=== PATIENT | male | born 1935 | race Caucasian/White ===

== ENCOUNTER 2018-08-27 16:46 | Inpatient (IN) ==
--- NOTE | 2018-08-27 18:40 | Diag Imaging Result Doc PS360 ---
CHEST-2 VIEWS - 08/27/2018 INDICATION: edema COMPARISON: 06/02/2018 FINDINGS: The lungs are normally expanded and clear. Heart size and mediastinal contours are normal. No pneumothorax or pleural effusion. IMPRESSION: Negative exam. Electronically signed by Palomo Romo 08/27/2018 6:38 PM
--- NOTE | 2018-08-27 20:06 | PROVIDER DOCUMENTATION ---
This chart was entered by Natividad Alves Scribe, acting as scribe for You Hernandez MD. HPI-General Adult - General Chief Complaint: Edema Stated Complaint: BLISTERS ON LEG/LEAKING Time Seen by Provider: 08/27/18 19:30 Source: patient Allergies/Adverse Reactions: Patient Allergies Allergy/AdvReac Type Severity Reaction Status Date / Time No Known Allergies Allergy Verified 05/28/18 08:59 Home Medications: Home Medication List Medication Instructions Recorded Confirmed Last Taken Type Finasteride [Proscar] 5 mg PO QAM 05/17/18 05/28/18 05/27/18 History Hydralazine [Apresoline] 25 mg PO BID 05/17/18 05/28/18 05/27/18 History ATORVAstatin [Lipitor] 40 mg PO QHS #90 tab 05/22/18 05/28/18 05/27/18 Rx Hydrocodone/APAP 10 mg/325 mg 1 ea PO Q6H PRN PRN #10 tab 05/22/18 05/28/18 05/27/18 Rx [Regina-10] Metoprolol Succinate E.r. [Toprol 25 mg PO DAILY #120 tab 05/22/18 05/28/18 05/27/18 Rx Xl] Amoxicillin/Potassium Clav 1 ea PO BID #14 tab 06/03/18 Unknown Rx [Augmentin 500-125 Tablet] Folic Acid 1 mg PO DAILY #30 tab 06/03/18 Unknown Rx Furosemide [Lasix] 1 cap PO DAILY #30 tab 06/03/18 05/28/18 05/27/18 Rx Polyethylene Glycol 3350 [Miralax] 17 gm PO DAILY #30 powder, packet 06/03/18 Unknown Rx Sennosides/Docusate Sodium 2 ea PO BID PRN #60 tab 06/03/18 Unknown Rx [Pericolace] Tamsulosin [Flomax] 0.4 mg PO QHS #30 cap 06/03/18 Unknown Rx - History of Present Illness -Gen Adult Nature of Presenting Problems: 82 yom presents to ed w/co swelling in legs, red, infected, and weeping. pt states painful to touch. pt states this has been getting progressively worse the past 3 weeks. pt followed by Dr. Tapia. pt states Dr. Tapia told him to come to ed if swelling becomes worse. pt has hx of dm and chf. pt denies fever, cp, sob. pt is seen by home health. Location of Pain/Injury: reports: lower extremity (bilat legs blistered, weeping) Review of Systems - Adult - REVIEW OF SYSTEMS - ADULT Constitutional: reports: no symptoms reported. denies: chills, fever, fatique Eyes: reports: no symptoms reported Ears, Nose, Mouth & Throat: reports: no symptoms reported Cardiovascular: reports: no symptoms reported Respiratory: reports: no symptoms reported Gastrointestinal: reports: no symptoms reported Genitourinary: reports: no symptoms reported Musculoskeletal: reports: see HPI, joint swelling (bilat lower legs.), other (erythema, blistering and weeping.). denies: frequent leg cramps, joint pain, muscle weakness Integumentary: reports: no symptoms reported Neurological: reports: no symptoms reported Psychiatric: reports: no symptoms reported Endocrine: reports: no symptoms reported Hematologic/Lymphatic: reports: no symptoms reported Allergic/Immunologic: reports: no symptoms reported All Other Systems: Reviewed and Negative Past History - Adult - PAST MEDICAL HISTORY-ADULT Review of Records: reports: Old Records Reviewed, Nursing Assessment Review, Medications Reviewed, Social history reviewed & non-contributory. Major Childhood Illnesses: reports: denies history Cardiovascular: reports: CHF, HTN, hyperlipidemia Respiratory: reports: sleep apnea Gastrointestinal: reports: GERD Obstetrical/Gynecological: reports: denies history Genitourinary: reports: denies history Musculoskeletal: reports: denies history Neurological: reports: denies history Endocrine/Immune: reports: Diabetes, thyroid disorder Other Conditions: reports: other cancer (skin cancer) - PRIOR SURGERIES/PROCEDURES Surgical/Procedure History: reports: orthopedic (extremity) (total knee rep) - IMMUNIZATION STATUS Childhood Immunizations: See Nurse Assessment Flu Vaccine: See Nurse Assessment - FAMILY HISTORY Family History: reviewed, not pertinent - SOCIAL HISTORY Smoking: non-smoker Substance Use: none/never Physical Exam-General - PHYSICAL EXAM-ADULT Initial Vital Signs Reviewed: Yes - CONSTITUTIONAL General Appearance: alert, mild distress, obese. negative: slow to respond, obtunded, combative - EYES Eyes: PERRL/EOMI - HEAD, EARS, NOSE, MOUTH & THROAT HENMT: normocephalic/atraumatic, moist mucous membranes, normal ENT inspection - NECK Neck: non-tender, full range of motion, supple, normal inspection - RESPIRATORY Respiratory: chest non-tender, lungs clear, normal breath sounds - CARDIOVASCULAR Cardiovascular: normal peripheral pulses, regular rate, rhythm - GASTROINTESTINAL (ABDOMEN) Abdominal Exam: normal bowel sounds, non tender, soft - LYMPHATIC Lymphatic: no adenopathy - MUSCULOSKELETAL Back Exam: normal inspection, no CVA tenderness, no vertebral tenderness Extremity: erythema, inflammation, pedal edema, swelling, tenderness, other (visible weeping blisters bilat lower extremities). 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 nml as tested, grossly normal, no motor/sensory deficits - PSYCHIATRIC Psych/Mental Status: normal mood/affect, normal thought content, normal thought process, oriented x 3 Progress - PLAN OF CARE/RESULTS Progress/Plan/Lab Results: Vital Signs - 8 hr 08/27/18 17:19 Temperature 98.2 F Pulse Rate 67 Respiratory Rate 22 Blood Pressure 203/85 O2 Sat by Pulse Oximetry 95 Orders Category Date Time Status Cardiac Monitoring DIRECTED Care 08/27/18 17:24 Active Oxygen Therapy- ED Nursing DIRECTED Care 08/27/18 17:24 Active Saline Loc NOW Care 08/27/18 17:24 Active CHEST-2 VIEWS [RAD] Stat Exams 08/27/18 17:24 Completed BLOOD CULTURE [BLDCUL] Stat Lab 08/27/18 19:31 Uncollected CBC WITH ELECTRONIC DIFF [HEME] Stat Lab 08/27/18 17:24 Uncollected CK PROFILE [SP CHEM] Stat Lab 08/27/18 17:24 Uncollected COMPREHENSIVE METABOLIC PANEL [CHEM] Stat Lab 08/27/18 17:24 Uncollected PRO B-NATRIURETIC PEPTIDE Stat Lab 08/27/18 17:24 Uncollected PROTIME WITH INR [COAG] Stat Lab 08/27/18 17:24 Uncollected PTT [COAG] Stat Lab 08/27/18 17:24 Uncollected TROPONIN T Stat Lab 08/27/18 17:24 Uncollected CP/SOB/Palp >45 yrs of Age Stat Oth 08/27/18 17:24 Ordered EKG [EKG] Stat Ther 08/27/18 17:24 Ordered Result Diagrams: 08/27/18 22:02 - CONSULTS/PCP/HOSPITALIST Notification #1 *Consult/PCP/Hospitalist*: Dr. Espinal,hospitalist Time Discussed: 22:20 Consult Disposition: Admit Departure - Departure Date of Disposition Decision: 08/27/18 Time of Disposition Decision: 22:57 DIAGNOSIS: Cellulitis Qualifiers: Site of cellulitis: extremity Site of cellulitis of extremity: lower extremity Laterality: unspecified laterality Qualified Code(s): L03.119 - Cellulitis of unspecified part of limb Disposition: ADMITTED INPATIENT 09 Certified Medical Emergency: Emergent Condition: Stable Referrals and Follow-Ups: Calin Tapia MD [ACTIVE STAFF PHYSICIAN] - - Critical Care Note This patient required my direct & personal management of CC.: No Attestation - Physician/ NEERU Attestation Patient care was provided by Advanced Practice Provider:: No The physician spent face to face time with patient:: Yes Advanced Practice Provider documentation review:: Supervising physician onsite and consulted in the evaluation and care of this patient. The physician did have a face to face encounter with the patient. This chart was documented by the indicated scribe, (Natividad Alves Scribe) and accurately reflects the services I performed and decisions made by me, You Hernandez MD, as attested by the provider's signature.
[2018-08-27] MEDS ORDERED: NORCO-5 PO ONE (22:08)
[2018-08-27 22:25] LABS: BASO# 0.02 X1000 (0.0-0.2); BASO% 0.2 % (0.0-0.8); EOS# 0.14 X1000 (0.0-0.7); EOS% 1.2 % (0.0-10.0); HEMATOCRIT 39.4 % (42.0-52.0); HEMOGLOBIN 12.1 g/dL (14.0-18.0); IMM GRAN# 0.02 X1000 (0.0-0.04); IMM GRAN% 0.2 % (0.0-0.5); LYMPH# 1.35 X1000 (1.2-3.4); LYMPH% 11.5 % (20.5-51.1); MCHC 30.7 g/dL (33-37); MCV 97.8 FL (81-99); MONO# 0.98 X1000 (0.11-0.59); MONO% 8.4 % (1.7-9.3); MPV 9.9 FL (7.4-10.4); NEUT# 9.18 X1000 (1.4-6.5); NEUT% 78.5 % (42.2-75.2); PLT 231 X1000 (130-400); RBC 4.03 XMIL (4.7-6.1); RDW 14.2 % (11.5-14.5); WBC 11.69 X1000 (4.8-10.8)
[2018-08-27 22:33] LABS: INR 1.09
[2018-08-27 22:34] LABS: PTT 32.1 Seconds (22.3-41.8)
[2018-08-27] MEDS: ZOSYN 3.375 GM in NS 50 ML IV ONE ×2 (22:53→23:45)
[2018-08-27] MEDS ORDERED: VANCOMYCIN 1 GM/NS 1 GM/250 ML IVPB IV ONE (22:53)
[2018-08-27 23:02] LABS: ALB/GLOB RATIO 0.5; ALBUMIN 2.6 g/dL (3.5-5.0); CALCIUM 8.6 mg/dL (8.8-10.2); CREATININE 1.5 mg/dL (0.7-1.2); POTASSIUM 5.3 mmol/L (3.5-5.1); TOTAL BILIRUBIN 0.57 mg/dL (0.20-1.00); TOTAL PROTEIN 7.4 g/dL (6.3-8.3)
[2018-08-28] MEDS ORDERED: LASIX IV ONE (01:05)
[2018-08-28] MEDS ORDERED: APRESOLINE IV PRN (05:25)
[2018-08-28] MEDS ORDERED: CUBICIN 500 MG in NS 100 ML IV SCH (05:25)
[2018-08-28] MEDS ORDERED: HEPARIN SUBQ SCH (05:25)
[2018-08-28] MEDS: HUMULIN R SUBQ SCH ×4 (06:09→23:49)
[2018-08-28 06:42] LABS: BASO# 0.02 X1000 (0.0-0.2); BASO% 0.2 % (0.0-0.8); EOS% 1.6 % (0.0-10.0); HEMATOCRIT 38.5 % (42.0-52.0); HEMOGLOBIN 12.1 g/dL (14.0-18.0); IMM GRAN# 0.02 X1000 (0.0-0.04); IMM GRAN% 0.2 % (0.0-0.5); LYMPH# 1.69 X1000 (1.2-3.4); LYMPH% 13.6 % (20.5-51.1); MCHC 31.4 g/dL (33-37); MCV 95.5 FL (81-99); MONO# 1.21 X1000 (0.11-0.59); MONO% 9.8 % (1.7-9.3); MPV 9.6 FL (7.4-10.4); NEUT# 9.27 X1000 (1.4-6.5); NEUT% 74.6 % (42.2-75.2); PLT 275 X1000 (130-400); RBC 4.03 XMIL (4.7-6.1); WBC 12.41 X1000 (4.8-10.8)
[2018-08-28 07:02] LABS: HEMOGLOBIN A1C 6.1 % (4.8-6.0)
[2018-08-28 08:08] LABS: CALCIUM 8.9 mg/dL (8.8-10.2); CREATININE 1.4 mg/dL (0.7-1.2); POTASSIUM 4.9 mmol/L (3.5-5.1)
[2018-08-28] MEDS ORDERED: CALMOSEPTINE OINTMENT TOP PRN (08:15)
[2018-08-28] MEDS: PRILOSEC PO SCH (08:35)
[2018-08-28] MEDS: FLOMAX PO SCH (08:35)
[2018-08-28] MEDS: ZOSYN 2.25 GM in NS 50 ML IV SCH ×3 (12:37→20:47)
[2018-08-28] MEDS: LASIX IV SCH (12:37)
[2018-08-28] MEDS: NORCO-5 PO PRN ×2 (12:38→21:07)
--- NOTE | 2018-08-28 18:05 | CONSULTATION ---
DATE OF CONSULTATION: 08/28/2018 HISTORY OF PRESENT ILLNESS: A gentleman with multiple medical issues including diabetes, congestive heart failure, chronic edema, who is admitted with erythema of the legs and swelling with crusting ulcerations. For management of this, he has been started on antibiotics. He says it has been going on for better part of a week. MEDICAL HISTORY: Morbid obesity, diabetes, congestive heart failure, osteoarthritis, chronic kidney disease with hydronephrosis, history of pneumonia. SURGICAL HISTORY: He has had knee replacements bilaterally, but no vascular procedures. He has had urologic procedure as well. SOCIAL HISTORY: No current tobacco, alcohol or drugs. 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 FAMILY HISTORY: Reviewed, noncontributory. REVIEW OF SYSTEMS: Ten point negative. PHYSICAL EXAMINATION: Vital Signs: Temperature 99.8, pulse 83, blood pressure 157/56. He is 343 pounds, 5 feet 11 inches. General: He is alert, in no acute distress. Eyes: No scleral icterus. Cardiovascular: Normal rate. Pulmonary: No increased work of breathing. Abdomen: Obese with large panniculus. Integument: Warm and dry. Peripheral vascular: He has palpable pedal pulses, but he has chronic thickening of the skin with erythema and superficial ulcerations and crusting bilaterally. No necrosis. No purulence. Psychiatric: Appropriate affect. Neurologic: Generalized weakness related to his size. LABS: White count 12, hematocrit 38. Creatinine is 1.5, glucose 150, A1c 6.1. LFTs are normal. ASSESSMENT AND PLAN: This is an 82-year-old gentleman with: 1. Congestive heart failure. 2. Bilateral lower extremity edema. 3. Apparent superimposed cellulitis. We will start Unna wraps bilaterally. He is on appropriate antibiotics. We will continue to follow his wounds closed. I do not see any need for surgical debridement at this time, but we will monitor him closely. cc: Jayy Bruno MD [facility]
[2018-08-28] MEDS: HEPARIN SUBQ SCH (20:47)
[2018-08-29] MEDS: LASIX IV SCH ×2 (00:19→12:11)
[2018-08-29] MEDS: ZOSYN 2.25 GM in NS 50 ML IV SCH ×2 (00:19→05:27)
[2018-08-29] MEDS: NORCO-5 PO PRN ×3 (03:37→20:04)
[2018-08-29] MEDS: HEPARIN SUBQ SCH ×3 (05:27→20:06)
[2018-08-29] MEDS: PRILOSEC PO SCH ×2 (05:28→06:45)
[2018-08-29] MEDS: HUMULIN R SUBQ SCH ×3 (06:43→16:42)
[2018-08-29 06:51] LABS: BASO# 0.02 X1000 (0.0-0.2); BASO% 0.2 % (0.0-0.8); EOS# 0.36 X1000 (0.0-0.7); EOS% 3.8 % (0.0-10.0); HEMATOCRIT 38.3 % (42.0-52.0); HEMOGLOBIN 12.1 g/dL (14.0-18.0); IMM GRAN# 0.02 X1000 (0.0-0.04); IMM GRAN% 0.2 % (0.0-0.5); LYMPH# 1.47 X1000 (1.2-3.4); LYMPH% 15.4 % (20.5-51.1); MCH 30.5 PG (27-31); MCHC 31.6 g/dL (33-37); MCV 96.5 FL (81-99); MONO# 0.95 X1000 (0.11-0.59); MONO% 9.9 % (1.7-9.3); MPV 9.7 FL (7.4-10.4); NEUT# 6.75 X1000 (1.4-6.5); NEUT% 70.5 % (42.2-75.2); PLT 264 X1000 (130-400); RBC 3.97 XMIL (4.7-6.1); RDW 13.9 % (11.5-14.5); WBC 9.57 X1000 (4.8-10.8)
[2018-08-29 07:23] LABS: CALCIUM 8.3 mg/dL (8.8-10.2); CREATININE 1.5 mg/dL (0.7-1.2); POTASSIUM 4.4 mmol/L (3.5-5.1)
[2018-08-29] MEDS: FLOMAX PO SCH (08:54)
[2018-08-29] MEDS: MIRALAX PO SCH ×2 (09:13→20:06)
--- NOTE | 2018-08-29 09:46 | PROGRESS NOTE ---
DATE: 08/29/2018 SUBJECTIVE: The patient states he is feeling better. He is still complaining of bilateral lower extremity pain/discomfort. As per the patient, he has been having constipation. I will add MiraLAX to his medications. For now we will continue with the same management. WBC today is normal. Negative blood culture so far. OBJECTIVE: Vital Signs: Temperature 97.6 degrees, pulse 65, respiratory rate 24, blood pressure 158/62, oxygen saturation 98 on room air. HEENT: Head normocephalic. No trauma. PERRLA. Neck: Supple. Some JVD. Central trachea. Chest: Decreased breath sounds mostly at the bases. Some crepitus at the bases as well. Abdomen: Soft, obese. Positive bowel sounds. Extremities: Covered with a Unna wraps bilaterally. Some erythema on his toes though. 2 to 3+ lower extremity edema. No clubbing. No cyanosis. Neurological: The patient is alert and oriented x3. No focal deficits. LABORATORY: WBC 9.5, hemoglobin 12.1, hematocrit 38.3, platelets 264,000. Sodium 140, potassium 4.4, chloride 102, bicarbonate 27, BUN 47, creatinine 1.5, glucose 167, calcium 8.7. ASSESSMENT AND PLAN: 1. Bilateral lower extremity edema with cellulitis and superficial ulcerations. We will continue with the antibiotics. Surgery Department evaluated this patient and they recommended to use Unna wraps bilaterally. We will continue with antibiotics and monitoring this patient closely. Infectious Disease Department has been consulted. 2. Fluid overload. This patient had an echocardiogram done on 05/19/2018. His ejection fraction is around 55%, but his systolic pulmonary artery pressure by Doppler is around 60 to 65 mmHg with moderate pulmonary hypertension. Probably this patient has some diastolic issues. We will continue with IV Lasix for now. At home he also is using Lasix daily. 3. History of benign prostatic hypertrophy, aware. We will monitor. 4. Morbid obesity with a body mass index of around 47.9. 5. Hyperlipidemia. 6. Hypothyroidism. 7. Chronic bilateral lower extremity venous insufficiency. 8. Chronic kidney disease stage 3. We will continue to monitor. This patient is getting Lasix. Kidney function has been stable. 9. Constipation, I just added MiraLAX to his medications. cc: Tam Gould MD
--- NOTE | 2018-08-29 10:48 | GENERAL SURGERY PROGRESS NOTE ---
DATE: 08/29/2018 SUBJECTIVE: He is doing okay. Unna wraps are in place. No fevers recorded overnight. OBJECTIVE: Vital Signs: Pulse 65, blood pressure 158/62, oxygen saturation is 98%. General: He is alert, resting comfortably. Bilateral Unna wraps are in place. Toes are well perfused. Laboratory Data: White count is 9, hematocrit is 38. Creatinine is 1.5, glucose 160s to 170s. ASSESSMENT AND PLAN: This is an 82-year-old gentleman with venous hypertension and inflammation with superficial ulcerations and cellulitis. Continue antibiotics and Unna wrap compressive therapy. He will need Unna wraps going forward at home. We will continue to follow along. cc: Jayy Bruno MD
--- NOTE | 2018-08-29 11:02 | INFECTIOUS DISEASE CONSULT REP ---
DATE: 08/29/2018 CONCLUSION: The patient was admitted to the hospital with leg cellulitis. RECOMMENDATIONS: I have discontinued daptomycin and Zosyn and instead have put the patient on Cefepime. I have requested to be paged the next time the patient's leg dressings are changed. Also, I have ordered a culture of both legs with the next dressing change also. And finally I ordered pictures to be taken of the legs. DISCUSSION: The patient tells me about for the past correction patient says for a long time he has had swelling in his legs and in the past 2 to 3 weeks. His leg became edematous, erythematous and had what sounds like bullae on his legs as well. Laboratory studies show a CBC with a white count of 9570, hemoglobin 12.1, and platelet count 264,000. Creatinine is 1.5. GFR is 45. Liver function studies are normal. Blood cultures are pending. PAST MEDICAL HISTORY/REVIEW OF SYSTEMS: Eyes and ears: The patient denies trouble hearing or seeing, but when I was examining him, I did have to often repeat what I asked him. The patient can see near objects. He does not have any white coating on his tongue. There is no drainage from his nose or the ears. As mentioned above, he appeared to have difficulty hearing even though he told me he did not. Neck: No stiffness. Respiratory: No cough or shortness of breath. Cardiac: No chest pain or palpitations. GI: No nausea, vomiting or and no nausea, vomiting, or diarrhea. While being hospitalized, the patient did not pass a bowel movement. Bones, joints, muscles: Patient complains of bilateral knee pain. Endocrine: Patient is diabetic. He does not have any thyroid problems. Integument: No rash noted. PREVIOUS HOSPITALIZATIONS AND OPERATIONS: Patient had a traumatic difficult time trying to get a South catheter in place. Eventually, Dr. Larson put [address] The early attempts to put in a South were from the nurses. Patient also has had bilateral total knee arthroplasties and removal of a skin cancer. MEDICAL DISEASES: Positive for morbid obesity,diabetes mellitus, hypertension, skin cancer, congestive heart failure, osteoarthritis, and chronic kidney disease with hydronephrosis. INFECTIOUS DISEASE HISTORY: Positive for leg cellulitis and pneumonia. FAMILY HISTORY: Positive for myocardial infarction. SOCIAL HISTORY: [place] He is . He has a dog as a PET. The patient does not smoke cigarettes, drink alcoholic beverages or abuse drugs. ALLERGIES: His chart lists no known drug allergies. MEDICATIONS AT HOME: Alprazolam, Lipitor, Lotensin, Proscar, Lasix, Apresoline, hydrocodone, insulin, Teresa-Colace and Flomax. PHYSICAL EXAMINATION: Vital Signs: Temperature is 97.6 degrees, pulse 65, respirations 24, blood pressure 158/62. The patient weighs 343 pounds This is a chronically ill- appearing elderly male he is in no acute distress. Head/eyes/ears/nose/throat: He can see near objects. As mentioned before he has decrease in his hearing. He does not have any white patches in his mouth. He is edentulous. Neck: No meningismus. Cardiac: Heart rate is regular. Lungs: There were diminished breath sounds in the bases. I did not hear any rales. Abdomen: Soft and nontender. Extremities: Both legs had large Unna wraps over them. Neurologic: The patient is awake. He can move his extremities, but he is weak. There is no tremor. Integument: No rash noted. Thank you for the consult. cc: Richie Vela MD MTDD
[2018-08-29] MEDS: MAXIPIME 2 GM in NS 100 ML IV SCH ×2 (11:16→22:37)
[2018-08-29] MEDS ORDERED: APRESOLINE PO SCH (21:00)
[2018-08-30] MEDS: HUMULIN R SUBQ SCH ×4 (01:05→16:28)
[2018-08-30] MEDS: NORCO-5 PO PRN (01:31)
[2018-08-30] MEDS: LASIX IV SCH ×2 (01:31→13:40)
[2018-08-30] MEDS: HEPARIN SUBQ SCH ×3 (05:42→22:50)
[2018-08-30] MEDS: PRILOSEC PO SCH ×2 (05:42→06:15)
[2018-08-30 07:22] LABS: BASO# 0.02 X1000 (0.0-0.2); BASO% 0.2 % (0.0-0.8); EOS# 0.44 X1000 (0.0-0.7); EOS% 5.1 % (0.0-10.0); HEMATOCRIT 40.1 % (42.0-52.0); HEMOGLOBIN 12.5 g/dL (14.0-18.0); IMM GRAN# 0.02 X1000 (0.0-0.04); IMM GRAN% 0.2 % (0.0-0.5); LYMPH# 1.66 X1000 (1.2-3.4); LYMPH% 19.2 % (20.5-51.1); MCH 30.1 PG (27-31); MCHC 31.2 g/dL (33-37); MCV 96.6 FL (81-99); MONO% 10.4 % (1.7-9.3); MPV 9.9 FL (7.4-10.4); NEUT# 5.62 X1000 (1.4-6.5); NEUT% 64.9 % (42.2-75.2); PLT 283 X1000 (130-400); RBC 4.15 XMIL (4.7-6.1); RDW 13.7 % (11.5-14.5); WBC 8.66 X1000 (4.8-10.8)
[2018-08-30 07:51] LABS: CALCIUM 8.7 mg/dL (8.8-10.2); CREATININE 1.6 mg/dL (0.7-1.2); POTASSIUM 4.6 mmol/L (3.5-5.1)
[2018-08-30] MEDS ORDERED: DULCOLAX PR ONE (08:18)
[2018-08-30] MEDS ORDERED: XANAX PO PRN (08:22)
--- NOTE | 2018-08-30 08:49 | PROGRESS NOTE ---
DATE: 08/30/2018 SUBJECTIVE: This patient is lying comfortably in bed. He has generalized weakness. I will ask for physical therapy evaluation. It looks like he is still constipated. I have placed this patient on MiraLAX twice a day, and I will use a Dulcolax suppository today to see if that helps. As per the patient, he has not been walking too much at home because of weakness. I have requested an evaluation by OT and PT today. His blood pressure has been elevated. I have placed this patient on amlodipine 5 a day, and I increased his dose of hydralazine to 25 b.i.d. to 25 t.i.d. Let's see how he does. OBJECTIVE: Temperature 97.5 degrees, pulse 70, respiratory rate 20, blood pressure 179/79, and oxygen saturation 96 on room air.HEENT: Head normocephalic. No trauma. PERRLA. Neck: Supple. No JVD. No masses. Central trachea. Chest: Decreased breath sounds mostly at the bases with some crepitus at the bases as well. Abdomen: Soft, obese, and protuberant. Positive bowel sounds. Extremity: They are covered with an Unna wraps bilaterally. He has some erythema on his toes with some ulcers. They look good. 2 to 3+ lower extremity edema. No clubbing. No cyanosis. Neurological: The patient is alert and oriented x3. No focal deficits. LABORATORY: WBC 8.6, hemoglobin 12.5, hematocrit 96.6, and platelets 283,000. Sodium 145, potassium 4.6, chloride 103, bicarbonate 32, BUN 46, creatinine 1.6, glucose 159, and calcium 8.7. ASSESSMENT AND PLAN: 1. Bilateral lower extremity edema with cellulitis and superficial ulcerations. We will continue with antibiotics. Surgery Department has evaluated this patient and they recommended to use Unna wraps bilaterally. The Infectious Disease Department has evaluated this patient. They have modified the antibiotics. We will follow their recommendations. 2. Fluid overload. This patient had an echocardiogram on 05/19/2018. His ejection fraction is around 55, but his systolic pulmonary artery pressure by Doppler is around 60 to 65 mmHg with moderate pulmonary hypertension so probably this patient has diastolic issues. We will continue with Lasix for now. BUN and creatinine are around baseline. We will monitor. 3. History of BPH aware. We will monitor. 4. Morbid obesity with a body mass index of 47.9. Aware. Diet and exercise has been discussed. 5. Hyperlipidemia. Continue with same management. 6. Hypothyroidism. I would ask for a TSH level. I do not see any medication listed for his hypothyroidism. I asked the patient, and he does not remember taking that pill. We will probably call his pharmacy or primary doctor to find out. 7. Chronic bilateral lower extremity venous insufficiency. Aware. Continue with same management. 8. CKD stage 3. We will continue to monitor. This patient is getting Lasix. Kidney function has been stable. This is his baseline. 9. Constipation. Continue with MiraLAX twice a day. I will try a Dulcolax suppository today x1. cc: Tam Gould MD
[2018-08-30] MEDS: MIRALAX PO SCH ×2 (11:43→22:52)
[2018-08-30] MEDS: APRESOLINE PO SCH ×3 (11:44→18:22)
[2018-08-30] MEDS: MAXIPIME 2 GM in NS 100 ML IV SCH ×2 (11:45→22:53)
[2018-08-30] MEDS: NORVASC PO SCH (11:52)
[2018-08-30] MEDS: PROSCAR PO SCH (11:52)
[2018-08-30] MEDS: FOLIC ACID PO SCH (11:52)
[2018-08-30] MEDS: NORCO-10 PO PRN ×2 (12:15→18:22)
--- NOTE | 2018-08-30 13:33 | GENERAL SURGERY PROGRESS NOTE ---
DATE: 08/30/2018 SUBJECTIVE: Doing well. Legs feel better. He is in a chair. OBJECTIVE: His white count is normal at 8, hematocrit is 40. Creatinine is 1.6, glucose 150s and 140s. No fevers. No tachycardia. Blood pressure 179/79. Bilateral Unna boots. The right one has some drainage on it but the cellulitis extending above these is better. ASSESSMENT/PLAN: An 82-year-old gentleman with venous hypertension and chronic edema, cellulitis, and superficial ulcerations. We will continue his Unna wrap therapy. Follow along. He will need ongoing compressive therapy indefinitely. cc: Jayy Bruno MD
--- NOTE | 2018-08-30 15:48 | INFECTIOUS DISEASE PROGRESS NO ---
DATE: 08/30/2018 PRESENT ILLNESS: Patient has bilateral leg cellulitis to which he is predisposed because of his massive obesity, and he has chronic edema of the legs, which has become infected. MEDICATIONS: The patient is on cefepime IV as a single agent. PHYSICAL EXAMINATION: Vital Signs: Temperature is 97.4 degrees, pulse 71, respirations 12, blood pressure 162/71. General: This is a morbidly obese, elderly male. He is in no acute distress. Head, Eyes, Ears, Nose, and Throat: He can hear my spoken words and see near objects. He does not have any white coating to his tongue. Neck: No stiffness. Lungs: Clear to auscultation. Cardiovascular: Regular heart rate. Abdomen: Soft and nontender. Extremities: The Unna wraps were removed from both the patient's legs. Both legs from the knee to the foot have a purplish discoloration and areas where there has been loss of superficial skin, and there are superficial erythematous wounds visible. Neurologic: The patient is awake. He can move his extremities. There is no tremor. LABORATORY AND X-RAY STUDIES: The creatinine is 1.6. GFR is 41. Blood cultures are negative. CBC shows a white count of 8660, hemoglobin 12.5, and platelet count 283,000. I obtained cultures from both the legs of the patient, and these have been sent to microbiology laboratory. ASSESSMENT AND PLAN: The patient has bilateral leg edema and cellulitis. The plan is to have the patient elevate his legs as much as possible. I am going to continue cefepime pending the results of the culture I took from both the patient's legs today. COMORBIDITIES: The patient is morbidly obese, which has caused the patient to have bilateral leg edema. The patient also has diabetes mellitus and congestive heart failure and chronic kidney disease. cc: Richie Vela MD
[2018-08-30] MEDS: FLOMAX PO SCH (22:51)
[2018-08-30] MEDS: LIPITOR PO SCH (22:51)
[2018-08-31] MEDS: NORCO-10 PO PRN ×4 (00:16→19:37)
[2018-08-31] MEDS: HUMULIN R SUBQ SCH ×5 (06:34→22:34)
[2018-08-31] MEDS: PRILOSEC PO SCH (06:42)
[2018-08-31] MEDS: HEPARIN SUBQ SCH ×3 (06:42→22:33)
[2018-08-31 06:45] LABS: BASO# 0.04 X1000 (0.0-0.2); BASO% 0.5 % (0.0-0.8); EOS# 0.43 X1000 (0.0-0.7); EOS% 5.7 % (0.0-10.0); HEMATOCRIT 38.3 % (42.0-52.0); HEMOGLOBIN 12.1 g/dL (14.0-18.0); IMM GRAN# 0.02 X1000 (0.0-0.04); IMM GRAN% 0.3 % (0.0-0.5); LYMPH# 2.03 X1000 (1.2-3.4); LYMPH% 26.9 % (20.5-51.1); MCH 30.5 PG (27-31); MCHC 31.6 g/dL (33-37); MCV 96.5 FL (81-99); MONO% 10.6 % (1.7-9.3); MPV 9.5 FL (7.4-10.4); NEUT# 4.23 X1000 (1.4-6.5); PLT 280 X1000 (130-400); RBC 3.97 XMIL (4.7-6.1); RDW 13.6 % (11.5-14.5); WBC 7.55 X1000 (4.8-10.8)
[2018-08-31 07:25] LABS: CALCIUM 8.2 mg/dL (8.8-10.2); CREATININE 1.2 mg/dL (0.7-1.2); POTASSIUM 4.4 mmol/L (3.5-5.1)
[2018-08-31] MEDS: NORVASC PO SCH (09:34)
[2018-08-31] MEDS: MIRALAX PO SCH ×2 (09:34→22:33)
[2018-08-31] MEDS: LASIX IV SCH (09:34)
[2018-08-31] MEDS: PROSCAR PO SCH (09:34)
[2018-08-31] MEDS: FOLIC ACID PO SCH (09:34)
[2018-08-31] MEDS: APRESOLINE PO SCH ×3 (09:34→22:33)
[2018-08-31] MEDS: MAXIPIME 2 GM in NS 100 ML IV SCH ×2 (09:34→22:32)
--- NOTE | 2018-08-31 10:30 | HISTORY AND PHYSICAL ---
CHIEF COMPLAINT: Increasing swelling and irritation in his bilateral lower extremities. HISTORY OF PRESENT ILLNESS: He is an 82-year-old gentleman with CHF and morbid obesity, who presents with swelling and irritation in his lower extremities. He sees DR. Tapia as an outpatient. He carries a diagnosis of CHF and many other issues but not diabetes. Workup in the ER showed chronic venous stasis with underlying cellulitis and multiple areas of desquamation, I would say some sloughing off of old skin and then weeping of serous fluid. He states his legs have been getting worse for the last week. He has some subjective fevers and chills. Workup in the ER showed the cellulitis for which he was treated. I do not think he has had outpatient antibiotics. I think they encouraged him to go to the ER. He had seen Dr. Tapia, but he did not want to be admitted at [place] because of complications he had with a [place] catheter previously. He was here about 3 months ago for pneumonia and had issues then. He had bilateral hydronephrosis which I think was related possibly to a catheter or maybe a catheter not being placed. In any case, he had been discharged previously on Augmentin. Workup in the ER again showed the lower extremity cellulitis for which he was admitted. PAST MEDICAL HISTORY: 1. Reported CHF. 2. Hypertension. 3. Chronic venous insufficiency. 4. BPH. 5. Urinary retention with bladder hemorrhage, but I think that was related to the significant urinary retention. 6. Morbid obesity. 7. Hypothyroidism. 8. Chronic renal failure stage III. PAST SURGICAL HISTORY: He has had bilateral cataract repair. He has had right knee arthroplasty and total left knee arthroplasty. SOCIAL HISTORY: I think he is in assisted living. No alcohol. No tobacco. FAMILY HISTORY: No cardiac, no cancer, no diabetes. ALLERGIES: No known drug allergies. MEDICATIONS: Medication list is not complete. Hydralazine, Proscar, Flomax, Lipitor, Augmentin, folic acid, Lasix, MiraLAX, [place], sennosides, and metoprolol. PHYSICAL EXAMINATION: VITAL SIGNS: Blood pressure is 203/85, temperature 98.2, heart rate 67, respiratory rate 22. GENERAL: A well-developed male in no acute distress. HEENT: Head exam: Normocephalic, atraumatic. Eye exam: Pupils equally round, reactive to light. Extraocular movements were intact. Ears, nose, and throat exam: He had moist mucous membranes. NECK: Supple. CARDIOVASCULAR: Regular rate and rhythm, although S1 and S2 were soft. PULMONARY: Bilateral breath sounds diminished at the bases. GASTROINTESTINAL: Soft, protuberant, nontender. He had some peau de orange changes in his lower pannus. He had a small pustule or furunculosis that was not draining. EXTREMITIES: His lower extremities as far as skin exam showed diffuse, kind of brawny changes, but just erythema extending from his right and left extremities all the way down to his feet, with 2+ pedal edema. He had areas of just kind of dry eschar and kind of looked like ruptured bullae with serous drainage, and he had some erythema with lymphangiectasia in his upper extremities. NEUROLOGIC: Cranial nerves 2-12 were intact. He had difficulty lifting his bilateral extremities above gravity, was right at 3/5 bilaterally. Other than that, no major skin changes. LABORATORY DATA: White count is 11, hemoglobin is 12, hematocrit 39, platelets 231,000. Creatinine 1.5. He has varied significantly. He has been as high as 3. He is usually 1.5 to 2. ProBNP 5658. IMAGING STUDIES: His chest x-ray today showed really nothing much as far as edema. MICROBIOLOGY: Blood cultures are pending. PROBLEM LIST: This is an 82-year-old gentleman with reported heart failure, who presents from home with worsening lower extremity edema and shortness of breath and bilateral edema. ASSESSMENT: 1. Bilateral cellulitis. We will continue empiric antibiotics. I will switch him to daptomycin because he has renal failure, and we will get gram-negative coverage with Unasyn or Zosyn at renally dosed levels. He is going to need very aggressive wound care, which leads me to problem #2. 2. Chronic venous stasis ulcers, likely related to obesity, venous insufficiency. We will get a wound care consult. We may get Surgery to see him because that is not going to be available over the weekend, but he is going to need some chronic wound care, possibly even Unna boots. 3. Chronic renal failure. He is at baseline. We will see how he does. He does appear to be a bit volume overloaded so we will initiate diuretics and follow his kidney function closely. 4. Diabetes. We will monitor his blood sugars, continue sliding scale, continue his regular insulin, and get an A1c. 5. Heart failure, appears to be diastolic. At this point, he only has dependent edema so we will continue to follow with diuretics. Otherwise, he appears to be compensated. cc: Michael Espinal MD
--- NOTE | 2018-08-31 11:33 | PROGRESS NOTE ---
DATE: 08/31/2018 SUBJECTIVE: Patient reports feeling fine. He reports still feeling weak all over. OBJECTIVE: Vital Signs: Temperature 98.1 degrees, heart rate 66, respiratory rate 16, blood pressure 140/67, O2 saturation 94% on room air. General: This is a chronically ill-appearing and extremely morbidly obese, 82-year-old male, lying in bed, in no acute distress. Cardiovascular: S1, S2 heard. No murmurs, gallops, or rubs. Regular rate and rhythm. Respiratory: Decreased breath sounds globally, most likely related to body habitus. Minimal crackles in both lung bases. Patient is not using any accessory muscles. No work of breathing. Abdomen: Soft. Obese. Protuberant. Nontender to palpation. Bowel sounds present. No organomegaly. Extremities: Right lower extremity covered, but Unna wraps laterally. There is some edema on his toe with some ulcers. There is 2+ pedal edema in both legs noted, but no clubbing or cyanosis. Peripheral pulses present, but faint. Neurological: Patient is alert and oriented x3. Moves 4 extremities. LABORATORY DATA: White cell count 7.55, hemoglobin 10.1, hematocrit 38.3, platelets 280,000. BMP shows creatinine back to normal. Glucose 184. Hemoglobin A1c 6.1. ASSESSMENT AND PLAN: 1. Bilateral lower extremity edema with cellulitis and superficial ulcerations. Currently this patient is on cefepime as per Dr. Vela' recommendation. Wound culture shows gram-negative rods. At this time, we will continue with the same antibiotic management until we note the final sensitivity for culture. 2. Fluid overload. That condition is much better. Patient is breathing okay, not requiring any oxygen supplementation. We will continue to monitor. 3. Morbid obesity with body mass of 47.9. Patient advised to lose weight and follow a diet. 4. Hypothyroidism. TSH level is normal. We will continue to monitor this patient closely. 5. Hyperlipidemia. We will continue with medication. 6. Chronic kidney disease stage 3. Actually the renal function is completely back to normal with GFR of 58. We will continue to monitor. 7. Disposition. Patient is feeling very weak. The patient is okay to go to rehab. We will notify social secretary. cc: Carlito Torres MD [facility]
--- NOTE | 2018-08-31 13:26 | GENERAL SURGERY PROGRESS NOTE ---
DATE: 08/31/2018 SUBJECTIVE: Lauren boot wraps going okay. He says legs are feeling better. No fevers. His white count is now normal. ASSESSMENT AND PLAN: This is a 82-year-old gentleman with cellulitis related to venous ulcers. We will continue Unna wrap therapy. His legs are improving as is his systemic manifestations of infection. We will monitor him closely. cc: Jayy Bruno MD
[2018-08-31] MEDS: LIPITOR PO SCH (22:33)
[2018-08-31] MEDS: FLOMAX PO SCH (22:33)
[2018-09-01] MEDS: PRILOSEC PO SCH (06:36)
[2018-09-01] MEDS: HEPARIN SUBQ SCH ×3 (06:36→22:29)
[2018-09-01] MEDS: HUMULIN R SUBQ SCH ×4 (06:38→22:30)
[2018-09-01] MEDS: NORCO-10 PO PRN ×3 (06:46→20:31)
[2018-09-01] MEDS: LASIX IV SCH (09:02)
[2018-09-01] MEDS: FOLIC ACID PO SCH (09:02)
[2018-09-01] MEDS: MIRALAX PO SCH ×2 (09:02→20:19)
[2018-09-01] MEDS: NORVASC PO SCH ×2 (09:02→20:19)
[2018-09-01] MEDS: APRESOLINE PO SCH ×3 (09:02→20:19)
[2018-09-01] MEDS: PROSCAR PO SCH (09:02)
[2018-09-01] MEDS: MAXIPIME 2 GM in NS 100 ML IV SCH ×2 (10:06→22:30)
--- NOTE | 2018-09-01 14:35 | PROGRESS NOTE ---
DATE: 09/01/2018 SUBJECTIVE: The patient reports feeling okay. No complaints at this time. He continues to report feeling weak. OBJECTIVE: Vital Signs: Temperature 97.7 degrees, heart rate 65, respiratory rate 18, blood pressure 170/73, O2 saturation 98% on room air. General: This is a chronically ill-appearing, 82- year-old, male, lying in bed in no acute distress. Cardiovascular: S1, S2 heard. No murmurs, gallops, or rubs. Regular rate and rhythm. Respiratory: Decreased breath sounds globally, most likely related to body habitus, with murmur crackles in both lungs. The patient is not using any accessory muscles or having work of breathing. Abdomen: Soft, obese, nontender to palpation. Bowel sounds present. No organomegaly. Extremities: Right lower extremity covered by Unna wraps bilaterally. There is minimal edema in his toe with some ulcers. Peripheral pulses present, but faint. Neurological: Patient alert and oriented x3. Moves all 4 extremities. LABORATORY DATA: Reviewed. ASSESSMENT AND PLAN: 1. Bilateral lower extremity edema with cellulitis and superficial ulcerations. Currently, this patient continues to be on cefepime as per Dr. Vela recommendation. Wound cultures are still pending, and show gram negative rods. At this time, hopefully tomorrow, will know the final results of sensitivity, and will send this patient to rehab facility. 2. Fluid overload, better. Will continue with furosemide. 3. Morbid obesity with body mass index of 47.9. Aware. Patient advised to follow a diet and lose weight. 4. Hypothyroidism, under control. 5. Hyperlipidemia. Will continue home medication. 6. Chronic kidney disease stage 3. Actually, the renal function is back to normal. Will continue to monitor. 7. Disposition. We hope that final results of wound culture are available so he can be discharged to rehab facility. cc: MD KEYSHAWN Smith
--- NOTE | 2018-09-01 15:07 | INFECTIOUS DISEASE PROGRESS NO ---
DATE: 09/01/2018 PRESENT ILLNESS: Patient has bilateral leg cellulitis. He has chronic edema in the legs secondary to his massive obesity. MEDICATIONS: The patient is receiving cefepime as a single agent in a dose of 2 g IV every 12 hours pending culture results. PHYSICAL EXAMINATION: Vital Signs: Temperature is 98 degrees, pulse 70, respirations 20, blood pressure 180/70. General: This is a morbidly obese, elderly male. He is in no acute distress. Head, eyes, ears, nose, and throat: He can hear my spoken words and see near objects. He does not have any white coating on his tongue. Neck: No stiffness. Lungs: Clear to auscultation. Cardiovascular: Regular heart rate. Abdomen: Soft and nontender. Extremities: Patient has Unna wraps on both legs. The dressings are intact. Neurologic: The patient is awake. He can move his extremities. He does not have any tremor. LABORATORY AND X-RAY: There is no new lab for today and no new radiographic studies. The only thing new is that the patient's right leg is growing a gram-negative elias which has not yet been identified. ASSESSMENT AND PLAN: The patient has bilateral leg cellulitis. He has been urged to lose weight to elevate his legs as often as possible and while he is in the hospital at least have Unna wraps placed to both legs. COMORBIDITIES: The patient is morbidly obese. He has chronic edema in his legs. He also has diabetes mellitus, congestive heart failure, and chronic kidney disease. cc: Richie Vela MD
--- NOTE | 2018-09-01 20:11 | GENERAL SURGERY PROGRESS NOTE ---
DATE: 09/01/2018 SUBJECTIVE: No events, any wraps are going fine. I reviewed his labs. I reviewed his vital signs. ASSESSMENT/PLAN: An 82-year-old gentleman with bilateral cellulitis related to venous insufficiency and ulceration. Will defer antibiotics to the Medicine and Infectious Disease service. I can follow him at [facility] regarding his wounds going forward. cc: Jayy Bruno MD
[2018-09-01] MEDS: FLOMAX PO SCH (20:19)
[2018-09-01] MEDS: LIPITOR PO SCH (20:19)
[2018-09-01] MEDS ORDERED: BASAGLAR SUBQ SCH (21:00)
[2018-09-02] MEDS: NORCO-10 PO PRN ×2 (03:35→10:53)
[2018-09-02] MEDS: HEPARIN SUBQ SCH (06:09)
[2018-09-02] MEDS: PRILOSEC PO SCH (06:09)
[2018-09-02] MEDS: HUMULIN R SUBQ SCH ×2 (06:38→12:14)
[2018-09-02 06:53] LABS: BASO# 0.04 X1000 (0.0-0.2); BASO% 0.5 % (0.0-0.8); EOS# 0.36 X1000 (0.0-0.7); EOS% 4.9 % (0.0-10.0); HEMATOCRIT 40.3 % (42.0-52.0); HEMOGLOBIN 12.6 g/dL (14.0-18.0); IMM GRAN# 0.07 X1000 (0.0-0.04); LYMPH% 23.1 % (20.5-51.1); MCH 30.3 PG (27-31); MCHC 31.3 g/dL (33-37); MCV 96.9 FL (81-99); MONO# 0.75 X1000 (0.11-0.59); MONO% 10.2 % (1.7-9.3); MPV 9.6 FL (7.4-10.4); NEUT# 4.44 X1000 (1.4-6.5); NEUT% 60.3 % (42.2-75.2); PLT 279 X1000 (130-400); RBC 4.16 XMIL (4.7-6.1); RDW 13.5 % (11.5-14.5); WBC 7.36 X1000 (4.8-10.8)
[2018-09-02 07:21] LABS: CALCIUM 8.8 mg/dL (8.8-10.2); CREATININE 1.2 mg/dL (0.7-1.2); POTASSIUM 4.7 mmol/L (3.5-5.1)
--- NOTE | 2018-09-02 08:29 | INFECTIOUS DISEASE PROGRESS NO ---
DATE: 09/02/2018 PRESENT ILLNESS: The patient has bilateral leg cellulitis. He is predisposed to this by virtue of being obese and having chronic leg edema. MEDICATIONS: Currently, the patient is on cefepime. PHYSICAL EXAMINATION: Vital Signs: Temperature is 97.9 degrees, pulse 78, respirations 16, blood pressure 160/55. The patient weighs 243 pounds. General: This is a morbidly obese, elderly male. He is in no acute distress. Head, eyes, ears, nose, and throat: He can hear my spoken words and see near objects. He does not have any white patches on his tongue. Neck: No stiffness. Lungs: Clear to auscultation. Cardiovascular: Regular heart rate. Abdomen: Soft and nontender. Extremities: The patient has Unna wraps around both legs. The dressings are intact. Neurologic: Patient is alert. He can move his extremities. He does not have a tremor. LAB AND X-RAY: There is no new radiographic study. The CBC for today shows a white count of 7360, hemoglobin 12.6, and platelet count 297,000, creatinine is 1.2. GFR is 58. A culture taken from the leg grew Proteus mirabilis. ASSESSMENT AND PLAN: Patient has bilateral leg cellulitis. I am going to leave a prescription for Levaquin in the chart. Some of the side effects of the antibiotic including rash, diarrhea, seizures, tendon rupture, abnormalities of the blood sugar and aortic dissection and neurologic functions have been explained to the patient who agrees with treatment. My plan is to bring him up from the computer a prescription for Levaquin 500 mg daily for 14 days. I have also requested a followup appointment in my office for the patient in 2 weeks. I told the patient if possible do make the appointment on the day that the dressing change is made so that I can actually see the legs. If is not possible for the patient I told him if he has a camera on his cellphone taken take pictures, then if he could get pictures from the leg after the dressings are removed. COMORBIDITIES: The patient is morbidly obese. He has chronic leg edema. He also has diabetes, congestive heart failure and chronic kidney disease. cc: Richie Vela MD
--- NOTE | 2018-09-02 08:46 | INFECTIOUS DISEASE PROGRESS NO ---
DATE: 09/02/2018 ADDENDUM: I stressed to the patient the importance of elevating his legs as long as possible. I told him that if he is not walking or standing, then he needs to have his legs elevated. Also, I stressed to him the importance of getting his weight down so that will help clear some of the edema in his legs. I forgot to mention on the physical exam, both the patient's legs have Unna wraps on and the Unna wraps are intact. cc: Richie Vela MD
[2018-09-02] MEDS: MAXIPIME 2 GM in NS 100 ML IV SCH (09:58)
[2018-09-02] MEDS: MIRALAX PO SCH (09:58)
[2018-09-02] MEDS: PROSCAR PO SCH (09:59)
[2018-09-02] MEDS: NORVASC PO SCH (09:59)
[2018-09-02] MEDS: APRESOLINE PO SCH (09:59)
[2018-09-02] MEDS: FOLIC ACID PO SCH (10:00)
[2018-09-02] MEDS: LASIX IV SCH (10:00)
--- NOTE | 2018-09-02 10:01 | INFECTIOUS DISEASE PROGRESS NO ---
DATE: 09/02/2018 ADDENDUM REPORT I went back to see the patient. The Unna wraps had been removed from both legs. Both legs look much better. They are less swollen. Most all of the erythema has cleared. The open wounds have beefy red tissue. There is no purulence and no odor to the wounds, and there is only a small amount of some superficial skin that is peeling off. cc: Richie Vela MD
--- NOTE | 2018-09-02 11:18 | DISCHARGE SUMMARY ---
ADMISSION DATE: 08/28/2018 DISCHARGE DATE: 09/02/2018 ADMISSION DIAGNOSIS: 1. Bilateral lower extremity cellulitis initiated on daptomycin due to renal failure and Unasyn or Zosyn renally dosed and Wound Care consultation. 2. Chronic venous stasis ulcers related to obesity and venous insufficiency. 3. Chronic kidney disease stage 3. 4. Diabetes mellitus type 2. 5. Congestive heart failure that is diastolic. DISCHARGE DIAGNOSIS: 1. Bilateral lower extremity edema with cellulitis and superficial ulceration. Has been on cefepime but will be changed to Levaquin for [address] [facility] with culture on the right leg showing Proteus mirabilis only resistant to nitrofurantoin. 2. Fluid volume overload. Received Lasix. Is now improved. 3. Morbid obesity with body mass index of 47.9. Advised to follow a diet and lose weight and exercise. 4. Hypothyroidism, stable. 5. Hyperlipidemia. Continue with home medication. 6. Chronic kidney disease stage 3, stable. CONSULTATIONS: 1. Jayy Bruno MD to evaluate ulcerations for possible debridement. 2. Richie Vela MD for lower extremity cellulitis, who initiated the patient on Unna wrap compressive lower extremity therapy and will go to [facility] with Unna wrap. HOSPITAL COURSE: On 08/28/2018, Mr. Angel Cox, an 82-year-old male with severe morbid obesity and a BMI of 47.9, congestive heart failure, presents with swelling and redness in the lower extremities with cellulitis, leukocytosis, and venous ulcers due to chronic venous stasis with multiple areas of desquamation and sloughing and weeping of serous fluid. Apparently, he had worsening of the lower extremities for at least 1 week with subjective fevers and chills prior to presenting to the ER. He was initiated on antibiotic therapy. Culture of the wounds were obtained. The culture revealed that he had Proteus mirabilis. Blood cultures were negative. He was followed by Dr. Richie Vela, who placed him on cefepime and will send him home with 2 weeks of Levaquin. Also, Dr. Bruno was consulted to evaluate for any need of possible debridement but apparently there was no obvious need for it. He was started with Unna boot and wraps of the lower extremities. He was followed by a Wound Care nurse, and there is a plan for changing of the Unna boot today. Over the open wounds was Drawtex applied. He is going to follow as an outpatient with Dr. Bruno with wound care. White blood cell count was initially elevated at 11,000 and 12,000 the first 2 days of admission and then went back to normal. Wounds did not appear affected anymore. Vital signs are stable, and he is going to go to [facility] and will need to follow up with Dr. Richie Vela and Dr. Cal Bruno as an outpatient. VITAL SIGNS: Temperature 97.9, heart rate 78, respiratory rate 16, blood pressure 160/55, O2 saturation 96% on room air. DISCHARGE LAB DATA: White blood cells 7000, hemoglobin 12, hematocrit 40, platelet count 279. Sodium 141, potassium 4.7, BUN 43, creatinine is 1.2, glucose 163. PERTINENT IMAGING: He only had a chest x-ray on admission and it was a negative exam. No EKGs. Although, telemetry looks like he may be atrial fibrillation/atrial flutter. DISCHARGE MEDICATIONS: 1. He is going to be initiated on Levaquin for 2 weeks 500 mg p.o. daily. 2. Lantus 50 units subcutaneous nightly. 3. Xanax 1 mg p.o. twice daily p.r.n. 4. Apresoline 25 mg p.o. twice daily. 5. Benazepril HCL 40 mg p.o. daily. 6. Proscar 5 mg p.o. daily. 7. Flomax 0.4 mg p.o. nightly. 8. Lipitor 40 mg p.o. nightly. 9. Folic acid 1 mg p.o. daily. 10.Lasix 40 mg p.o. daily. 11.[place] 10 1 tablet p.o. every 6 hours p.r.n. 12.Teresa-Colace 2 tablets p.o. twice daily p.r.n. DISCHARGE DIET: Diabetic. DISCHARGE ACTIVITY: As tolerated. DISCHARGE INSTRUCTIONS: Follow up in Wound Clinic with Dr. Bruno for lower extremity Unna boots. If any signs of symptoms of infection like fever, chills, swelling, and redness of the lower extremities to notify Dr. Vela or present to the ER. FOLLOWUP: Include Dr. Cal Bruno for wound care at the Wound Clinic, and Dr. Richie Vela. DISCHARGE DISPOSITION: [facility]. Dictated by DAMON Isidro for Carlito Torres MD Addendum: Patient seen and examined by myself. Agree with DAMON note. It reflects my assessment and plan. Patient is being discharged in stable condition to rehab facility. Will be seen by Dr. Vela in 2 weeks. cc: DAMON Isidro MD [facility]
[2018-09-02 12:19] VITALS: BP 136/67
== END 2018-09-02 14:55 | DRG 603 ==
LOC: ED 16:46 → SUATTDRO 08-28 04:05 → 4N 08-28 04:05
PROVIDERS: ATTEND Internal Medicine
CPT/HCPCS: 71020; 71046; 80048; 80053; 82550; 82948; 83036; 83880; 84443; 84484; 85025; 85610; 85730; 87040; 87070; 87077; 87186; 93005; 96365; 96367; 96375; 97162; 97166; 97530; 97535; 99285; A9270; J0692; J0878; J1644; J1940; J2543; J3370; S0138; XXXXX